=== PATIENT | female | born 1945 | race African-American/Black ===

== ENCOUNTER 2018-02-28 05:53 | Inpatient (IN) | payer OTHER ==
[2018-02-19 14:51] VITALS: BMI 40.6
[~2018-02-28 05:53] MED LIST: CELECOXIB 200 MG CAPSULE PO ONE
[2018-02-28] MEDS ORDERED: CELECOXIB 200 MG CAPSULE ONE (06:17)
[2018-02-28] MEDS ORDERED: ePHEDrine SULFATE 50 MG/1 ML AMPULE ONE (07:06)
[2018-02-28] MEDS ORDERED: PROPOFOL 20 ML ONE ×4 (07:06)
[2018-02-28] MEDS ORDERED: SUCCINYLCHOLINE CHLORIDE 200 MG/10 ML VIAL ONE (07:06)
[2018-02-28] MEDS ORDERED: TRANEXAMIC ACID 1000 MG/10 ML VIAL ONE (07:11)
[2018-02-28] MEDS ORDERED: ceFAZolin SODIUM 1 GM VIAL ONE (07:11)
[2018-02-28] MEDS ORDERED: BUPIVACAINE HCL/PF 2.5 MG/ML - 30 ML VIAL IJ ONE ×2 (07:14→07:15)
[2018-02-28] MEDS ORDERED: DEXAMETHASONE SOD PHOSPHATE/PF 10 MG/ML SDV ONE (07:14)
[2018-02-28] MEDS ORDERED: BUPIVACAINE LIPOSOME/PF (EXPAREL) 266 MG/20 ML VIAL ONE (07:14)
[2018-02-28] MEDS ORDERED: MIDAZOLAM HCL 2 MG/2 ML SINGLE DOSE VIAL ONE (07:14)
[2018-02-28] MEDS ORDERED: BUPIVACAINE HCL/PF 0.5% (5MG/ML) 10 ML VIAL ONE (07:15)
--- NOTE | 2018-02-28 07:17 | HP ---
History & Physical Update - History History: No Change - Physical Physical: No Change - Assessment Assessment: No Change - Plan Plan: No Change (Initial H&P completed by patient's PCP/Dr. Gretta Rutherford on . No new complaints or medications. She is here today for elective repair of her LEFT knee OA. Planned procedure is LEFT knee arthroplasty.)
[2018-02-28] MEDS ORDERED: CEFAZOLIN 2 GM in DEXTROSE 5%-WATER - 50 ML IVPB ONE (07:30)
[2018-02-28] MEDS ORDERED: TRANEXAMIC ACID 1000 MG/10 ML VIAL IVPUSH ONE (07:30)
[2018-02-28] MEDS ORDERED: VANCOMYCIN 1,000 MG in DEXTROSE 5%-WATER - 250 ML IVPB ONE (08:00)
[2018-02-28] MEDS ORDERED: MAGNESIUM HYDROX 2400MG/30ML ORAL SUSPENSION 30 ML CUP PO PRN (09:26)
[2018-02-28] MEDS ORDERED: MAG HYDROX/AL HYDROX/SIMETH 30 ML UNIT-DOSE CUP PO PRN (09:26)
[2018-02-28] MEDS ORDERED: ONDANSETRON 4 MG/2 ML VIAL IVPUSH PRN (09:26)
[2018-02-28] MEDS ORDERED: LACTATED RINGERS SOLUTION 1,000 ML IV SCH (09:30)
[2018-02-28] MEDS ORDERED: BENZOIN/ALOE VERA/STORAX/TOLU 58 ML BOTTLE ONE (09:42)
[2018-02-28] MEDS ORDERED: SODIUM CHLORIDE 1,000 ML IV SCH (09:45)
[2018-02-28] MEDS ORDERED: PATIENT'S OWN MEDICATION (NON-FORMULARY) (Lisinopril/Hydrochlorothiazide [Lisinopril-Hctz PO SCH (10:00)
[2018-02-28] MEDS: oxyCODONE HCL 10 MG SUSTAINED ACTING TABLET PO SCH ×2 (11:00→21:05)
[2018-02-28] MEDS ORDERED: oxyCODONE HCL 10 MG SUSTAINED ACTING TABLET ONE (11:07)
[2018-02-28] MEDS ORDERED: ACETAMINOPHEN 325 MG TABLET (FP) ONE (11:07)
[2018-02-28] MEDS: ACETAMINOPHEN 325 MG TABLET (FP) PO SCH ×2 (11:20→23:43)
[2018-02-28] MEDS: oxyCODONE HCL 5 MG TABLET PO PRN ×3 (13:21→20:11)
--- NOTE | 2018-02-28 13:55 | CONSULT ---
Consultation: REQUESTING PROVIDER: Dr Carroll CONSULT REQUEST: We have been asked to medically evaluate this patient for medical management. HISTORY OF PRESENT ILLNESS: Patient is a 72 y/o female with a past medical history of DJD, hypertension, left carotid bruit, ckd, and DM. patient is s/p left total knee replacement, Dr Carroll, post op day 0, spinal anesthesia. REVIEW OF SYSTEMS: CONSTITUTIONAL: Absent: fever, chills, diaphoresis, generalized weakness, malaise, loss of appetite, weight change HEENT: Absent: rhinorrhea, nasal congestion, throat pain, throat swelling, difficulty swallowing, mouth swelling, ear pain, eye pain, visual changes CARDIOVASCULAR: Absent: chest pain, syncope, palpitations, irregular heart rate, lightheadedness , peripheral edema RESPIRATORY: Absent: cough, shortness of breath, dyspnea with exertion, orthopnea, wheezing, stridor, hemoptysis GASTROINTESTINAL: Absent: abdominal pain, abdominal distension, nausea, vomiting, diarrhea, constipation, melena, hematochezia GENITOURINARY: Absent: dysuria, frequency, urgency, hesitancy, hematuria, flank pain, genital pain MUSCULOSKELETAL: Present: left knee pain Absent: myalgia, arthralgia, joint swelling, back pain, neck pain SKIN: Absent: rash, itching, pallor HEMATOLOGIC/IMMUNOLOGIC: Absent: easy bleeding, easy bruising, lymphadenopathy, frequent infections ENDOCRINE: Absent: unexplained weight gain, unexplained weight loss, heat intolerance, cold intolerance NEUROLOGIC: Absent: headache, focal weakness or paresthesias, dizziness, unsteady gait, seizure, mental status changes, bladder or bowel incontinence PSYCHIATRIC: Absent: anxiety, depression, suicidal or homicidal ideation, hallucinations. PHYSICAL EXAMINATION Vital Signs - 24 hr 02/28/18 02/28/18 02/28/18 06:45 10:35 10:40 Temperature 97.6 F 97.7 F Pulse Rate 102 H 63 66 Respiratory 16 18 18 Rate Blood Pressure 143/83 104/68 105/84 O2 Sat by Pulse 100 100 Oximetry (%) 02/28/18 02/28/18 02/28/18 10:45 11:00 11:15 Temperature Pulse Rate 66 68 65 Respiratory 18 18 18 Rate Blood Pressure 118/75 92/75 122/78 O2 Sat by Pulse 100 100 100 Oximetry (%) 02/28/18 02/28/18 02/28/18 11:30 11:45 12:00 Temperature Pulse Rate 66 68 65 Respiratory 18 18 18 Rate Blood Pressure 124/85 140/79 143/76 O2 Sat by Pulse 100 100 100 Oximetry (%) 02/28/18 02/28/18 12:15 12:48 Temperature 98.3 F Pulse Rate 66 66 Respiratory 18 18 Rate Blood Pressure 141/79 136/76 O2 Sat by Pulse 100 98 Oximetry (%) GENERAL: Awake, alert, and fully oriented, in no acute distress. HEAD: Normal with no signs of trauma. EYES: Pupils equal, round and reactive to light, extraocular movements intact, sclera anicteric, conjunctiva clear. No lid lag. EARS, NOSE, THROAT: Ears normal, nares patent, oropharynx clear without exudates. Moist mucous membranes. NECK: Normal range of motion, supple without lymphadenopathy, JVD, or masses. LUNGS: Breath sounds equal, clear to auscultation bilaterally. No wheezes, and no crackles. No accessory muscle use. HEART: Regular rate and rhythm, normal S1 and S2 without murmur, rub or gallop. ABDOMEN: Soft, nontender, not distended, normoactive bowel sounds, no guarding, no rebound, no masses. No hepatomegaly or splenomegaly. MUSCULOSKELETAL: Normal range of motion at all joints. No bony deformities or tenderness. No CVA tenderness. UPPER EXTREMITIES: 2+ pulses, warm, well-perfused. No cyanosis. No clubbing. Cap refill <2 seconds. No peripheral edema. LOWER EXTREMITIES: 2+ pulses, warm, well-perfused. No calf tenderness. No peripheral edema. LEFT LOWER EXTREMITY: dressing CDI, hemovac noted, scant serrous drainage noted NEUROLOGICAL: Cranial nerves II-XII intact. Normal speech. Normal gait. PSYCHIATRIC: Cooperative. Good eye contact. Appropriate mood and affect. SKIN: Warm, dry, normal turgor, no rashes or lesions noted. Laboratory Results - last 24 hr 02/28/18 02/28/18 06:31 11:16 POC Glucometer 123 118 Active Medications Generic Name Dose Route Start Last Admin Trade Name Freq PRN Reason Stop Dose Admin Acetaminophen 650 mg 02/28/18 12:00 02/28/18 11:20 Tylenol - PO 03/03/18 11:59 650 mg Q6H DIANE Administration Al Hydroxide/Mg Hydroxide 30 ml 02/28/18 09:26 Mylanta Oral Suspension - PO Q4H PRN DYSPEPSIA Aspirin 81 mg 03/01/18 07:00 Asa - PO BID@0700,1900 [facility] Fentanyl 50 mcg 02/28/18 09:38 Sublimaze Injection - IVPUSH [id number] PRN PAIN-PACU ORDER X 4 DOSES ONLY Hydrochlorothiazide 25 mg 03/01/18 10:00 Hctz - PO DAILY [facility] Cefazolin Sodium/Dextrose 2 gm in 50 mls @ 100 mls/hr 02/28/18 16:00 Ancef 2 Gm Premixed Ivpb - IVPB 03/01/18 00:29 Q8H [facility] Vancomycin HCl 1,000 mg in 250 mls @ 166.667 mls/hr 02/28/18 20:00 Vancomycin (Pre-Docked) IVPB 02/28/18 21:29 ONCE ONE Protocol Sodium Chloride 1,000 mls @ 100 mls/hr 02/28/18 09:45 Normal Saline - IV ASDIR [facility] Insulin Aspart 0 units 02/28/18 11:00 Novolog Vial SQ TIDAC [facility] Protocol Lisinopril 20 mg 03/01/18 10:00 Prinivil PO DAILY [facility] Magnesium Hydroxide 30 ml 02/28/18 09:26 Milk Of Magnesia - PO PRN PRN CONSTIPATION Metformin HCl 1,000 mg 03/01/18 07:00 Glucophage Xr - PO BIDI [facility] Ondansetron HCl 4 mg 02/28/18 09:26 Zofran Injection IVPUSH Q6H PRN NAUSEA Oxycodone HCl 5 mg 02/28/18 09:38 Roxicodone - PO Q3H PRN PAIN LEVEL 1-5 Oxycodone HCl 10 mg 02/28/18 09:38 02/28/18 13:21 Roxicodone - PO 10 mg Q3H PRN Administration PAIN LEVEL 6-10 Oxycodone HCl 10 mg 02/28/18 10:00 02/28/18 11:00 Oxycontin - PO 03/03/18 09:39 10 mg BID [facility] Administration Pantoprazole Sodium 40 mg 02/28/18 10:00 Protonix - PO DAILY [facility] Senna/Docusate Sodium 2 tablet 02/28/18 10:00 Pericolace - PO BID [facility] ASSESSMENT/PLAN: 1) MS s/p left total knee replacement, post op day 0 - prn pain medication - monitor hgb - incentive spirometer - physical therapy as per the orthopedist 2) cardiovascular hypertension - cardiology records reviewed, last echo 02/05/18, lvef nl. no as, systolic dysfunction - continue lisinopril,strict monitoring of b/p 3) endo dm fingersticks achs with regular insulin sliding scale -continue metformin with caution, hx of ckd 4) neph ckd - baseline creatine 1.6, strict monitoring Dispo: We will continue to follow the patient. Thank you for this consultative opportunity. Visit type - Emergency Visit Emergency Visit: No - New Patient This patient is new to me today: Yes Date on this admission: 02/28/18 - Critical Care Critical Care patient: No
[2018-02-28] MEDS: CEFAZOLIN 2 GM/D5W 2 GM/50 ML ML IVPB SCH ×2 (16:00→23:43)
[2018-02-28] MEDS ORDERED: VANCOMYCIN 1 GRAM (PRE-DOCKED) 1,000 MG/250 ML BAG IVPB ONE (20:00)
[2018-02-28] MEDS: SENNOSIDES/DOCUSATE COMBO (SENNA PLUS) TABLET (UD) PO SCH (21:05)
[2018-03-01] MEDS: ACETAMINOPHEN 325 MG TABLET (FP) PO SCH ×4 (05:47→23:17)
[2018-03-01] MEDS: oxyCODONE HCL 5 MG TABLET PO PRN (05:48)
[2018-03-01] MEDS: INSULIN (NOVOLOG) ASPART 100 UNITS/ML 10ML VIAL SQ SCH ×2 (06:25→16:54)
[2018-03-01] MEDS: ASPIRIN 81 MG CHEWABLE TABLETS PO SCH ×2 (06:25→18:08)
[2018-03-01 07:45] LABS: HEMATOCRIT 33.7 % (32.4-45.2); HEMOGLOBIN 11.5 GM/dl (10.7-15.3); MCH 31.9 pg (25.7-33.7); MCHC 34.2 g/dl (32.0-36.0); MEAN CELL VOLUME 93.3 fl (80-96); MEAN PLT VOLUME 7.3 fl (7.5-11.1); PLATELET COUNT 278 K/MM3 (134-434); RBC 3.61 M/mm3 (3.60-5.2); RDW 12.8 % (11.6-15.6); WHITE BLOOD COUNT 7.9 K/mm3 (4.0-10.8)
[2018-03-01 08:00] LABS: ANION GAP 7 (8-16); BLOOD UREA NITROGEN 29 mg/dl (7-18); CALCIUM 8.9 mg/dl (8.4-10.2); CHLORIDE 103 mmol/L (98-107); CO2 24 mmol/L (22-28); CREATININE 1.6 mg/dl (0.6-1.3); GLUCOSE,RANDOM 167 mg/dl (74-106); POTASSIUM 4.7 mmol/L (3.5-5.1); SODIUM 134 mmol/L (136-145)
[2018-03-01] MEDS: oxyCODONE HCL 10 MG SUSTAINED ACTING TABLET PO SCH ×2 (09:15→21:28)
[2018-03-01] MEDS: SENNOSIDES/DOCUSATE COMBO (SENNA PLUS) TABLET (UD) PO SCH ×2 (09:16→21:29)
[2018-03-01] MEDS: PANTOPRAZOLE 40 MG TABLET (FP) PO SCH (09:16)
--- NOTE | 2018-03-01 09:33 | OP ---
DATE OF OPERATION: 02/28/2018 SURGEON: Pete Carroll MD ASSISTANTS: Igor Carroll MD andJIMMY PREOPERATIVE DIAGNOSIS: Tricompartment osteoarthritis, left knee, with severe valgus deformity (fixed). POSTOPERATIVE DIAGNOSIS: Tricompartment osteoarthritis, left knee, with severe valgus deformity (fixed). OPERATION PERFORMED: 1. Left total knee arthroplasty. 2. Lateral release. ANESTHESIA: Adductor block with spinal anesthesia and conscious sedation. ANTIBIOTICS GIVEN: Kefzol 2 g, 1 g vancomycin preop; 1 g Kefzol given at the time of release of the tourniquet. PROCEDURE: Patient correctly identified and brought to the operating room. Left lower extremity was prepped routinely and draped, that is free draped with Betadine scrub solution, wiped with alcohol, DuraPrep applied. The knee was flexed. A midline incision was utilized from 2 fingers above the tip of the patella to the mid-section of the tibial tubercle. The incision was taken through the skin and subcutaneous tissue. The soft tissues were freed off the vastus tissues disscected slightly to the medial retinacula. The quadriceps tendon was split longitudinally and this was then curved around the medial aspect of the parapatellar margin to the medial aspect of the tibial tubercle. Sharp dissection was utilized to free the soft tissue off the proximal medial aspect of the tibia. The cruciate ligaments were transected. Sharp Hohmann placed behind the tibial structures accordingly. Severe valgus deformity with severe destructive arthropathy encountered. Once this had been performed, using the [employer]ESS[employer] jig system, the tibia was cut to neutral. The femur was cut to 3 degrees of external rotation and 4 degrees of valgus and the joint line was proximalized. Instead of 8 mm, we took 10 mm off the actual femoral component and a liberal cut of the tibia was utilized. Some sclerotic bone was left behind, but this was dealt with with multiple small drill holes placed into the bone bed for cementation later. The jig cuts were uncomplicated. This brought the knee into completely normal alignment. The flexion/extension gaps were even. The tibia measured a size 4. The femur measured a size 4, and because of the relative instability of the medial collateral ligament, we elected for a TS, that is constrained -type construct. A 100-mm stem was added to the tibial component to augment fixation. The patellar lug holes were drilled accordingly. Cementing was in 1 stage. The cement was cured and all extraneous cement was removed. The knee was brought in full extension and once the entire construct had cured in terms of cement and fixation, a beautiful anatomic realignment of his knee was achieved. That is, the knee was in anatomical coronal plane alignment, sagittal plane alignment was uncomplicated, patellar tracking was normal. A negative thumb test test was utilized, appreciating that the patella did not sublux laterally. In order to facilitate and remove some slight tilting of the patella, a distal lateral release was performed. The wounds were thoroughly lavaged. All extraneous cement was removed. A size 13 polyethylene liner for TS articulation was utilized. The wounds were closed as follows: Quadriceps tendon and parapatellar tendon with 1 Vicryl, fascia and subcutaneous with 1 Vicryl, skin 3-0 Monocryl with Steri-Strips. No drains utilized. Operation went extremely well. No complications. MD CLIFF Sow/[id number] MTDD
[2018-03-01] MEDS: HYDROCHLOROTHIAZIDE 25 MG TABLET (FP) PO SCH (09:43)
[2018-03-01] MEDS: LISINOPRIL 20 MG TABLET (FP) PO SCH (09:43)
--- NOTE | 2018-03-01 09:56 | PN ---
Progress Note, Physician Chief Complaint: s/p left knee arthroplasty under spinal anesthesia History of Present Illness: post op day one with adductor canal and popliteal blocks for postop pain control - Current Medication List Current Medications: Active Medications Acetaminophen (Tylenol -) 650 mg PO Q6H [facility] Stop: 03/03/18 11:59 Last Admin: 03/01/18 05:47 Dose: 650 mg Al Hydroxide/Mg Hydroxide (Mylanta Oral Suspension -) 30 ml PO Q4H PRN PRN Reason: DYSPEPSIA Aspirin (Asa -) 81 mg PO BID@0700,1900 [facility] Last Admin: 03/01/18 06:25 Dose: 81 mg Fentanyl (Sublimaze Injection -) 50 mcg IVPUSH [id number] PRN PRN Reason: PAIN-PACU ORDER X 4 DOSES ONLY Hydrochlorothiazide (Hctz -) 25 mg PO DAILY [facility] Last Admin: 03/01/18 09:43 Dose: 25 mg Sodium Chloride (Normal Saline -) 1,000 mls @ 100 mls/hr IV ASDIR [facility] Insulin Aspart (Novolog Vial) 0 units SQ TIDAC [facility] PRN Reason: Protocol Last Admin: 03/01/18 06:25 Dose: 2 units Lisinopril (Prinivil) 20 mg PO DAILY [facility] Last Admin: 03/01/18 09:43 Dose: 20 mg Magnesium Hydroxide (Milk Of Magnesia -) 30 ml PO PRN PRN PRN Reason: CONSTIPATION Metformin HCl (Glucophage Xr -) 1,000 mg PO BIDI [facility] Last Admin: 03/01/18 06:25 Dose: 1,000 mg Ondansetron HCl (Zofran Injection) 4 mg IVPUSH Q6H PRN PRN Reason: NAUSEA Oxycodone HCl (Roxicodone -) 5 mg PO Q3H PRN PRN Reason: PAIN LEVEL 1-5 Last Admin: 03/01/18 05:48 Dose: 5 mg Oxycodone HCl (Roxicodone -) 10 mg PO Q3H PRN PRN Reason: PAIN LEVEL 6-10 Last Admin: 02/28/18 17:22 Dose: 10 mg Oxycodone HCl (Oxycontin -) 10 mg PO BID [facility] Stop: 03/03/18 09:39 Last Admin: 03/01/18 09:15 Dose: 10 mg Pantoprazole Sodium (Protonix -) 40 mg PO DAILY [facility] Last Admin: 03/01/18 09:16 Dose: 40 mg Senna/Docusate Sodium (Pericolace -) 2 tablet PO BID [facility] Last Admin: 03/01/18 09:16 Dose: 2 tablet - Objective Vital Signs: Vital Signs Temperature 98.5 F 03/01/18 06:35 Pulse Rate 103 H 03/01/18 06:35 Respiratory Rate 20 03/01/18 06:35 Blood Pressure 117/66 03/01/18 06:35 O2 Sat by Pulse Oximetry (%) 98 03/01/18 06:35 Constitutional: Yes: Well Nourished Cardiovascular: Yes: WNL Respiratory: Yes: WNL Gastrointestinal: Yes: WNL Neurological: Yes: WNL Labs: CBC, BMP 03/01/18 07:15 03/01/18 07:15 Assessment/Plan complained of pain overnight but controlled now, no nausea or vomiting, no adverse effect of anesthetic, advised to continue to ask for prn oxycodone. Will sign off care at this time.
--- NOTE | 2018-03-01 12:22 | PN ---
Physical Exam: SUBJECTIVE: Patient seen and examined, reports feeling well, reports minimal pain to the left lower extremity. OBJECTIVE:ashlyn is a 72 y/o female with a past medical history of DJD, hypertension, left carotid bruit, ckd, and DM. patient is s/p left total knee replacement, Dr Carroll, post op day 1, spinal anesthesia. Vital Signs Period Temp Pulse Resp BP Sys/Howard Pulse Ox Last 24 Hr 98.2 F-98.5 F 66-103 18-20 117-157/66-79 98-98 GENERAL: The patient is awake, alert, and fully oriented, in no acute distress. HEAD: Normal with no signs of trauma. EYES: PERRL, extraocular movements intact, sclera anicteric, conjunctiva clear. No ptosis. ENT: Ears normal, nares patent, oropharynx clear without exudates, moist mucous membranes. NECK: Trachea midline, full range of motion, supple. LUNGS: Breath sounds equal, clear to auscultation bilaterally, no wheezes, no crackles, no accessory muscle use. HEART: Regular rate and rhythm, S1, S2 without murmur, rub or gallop. ABDOMEN: Soft, nontender, nondistended, normoactive bowel sounds, no guarding, no rebound, no hepatosplenomegaly, no masses. EXTREMITIES: 2+ pulses, warm, well-perfused, no edema. LEFT LOWER EXTREMITY: dressing CDI, less than 3 second capillary refill, +3 pedal pulse NEUROLOGICAL: Cranial nerves II through XII grossly intact. Normal speech, gait not observed. PSYCH: Normal mood, normal affect. SKIN: Warm, dry, normal turgor, no rashes or lesions noted Laboratory Results - last 24 hr 03/01/18 03/01/18 03/01/18 06:23 07:15 07:15 WBC 7.9 RBC 3.61 Hgb 11.5 Hct 33.7 MCV 93.3 MCH 31.9 MCHC 34.2 RDW 12.8 Plt Count 278 MPV 7.3 L Sodium 134 L Potassium 4.7 Chloride 103 Carbon Dioxide 24 Anion Gap 7 L BUN 29 H Creatinine 1.6 H POC Glucometer 165 Random Glucose 167 H Calcium 8.9 Active Medications Generic Name Dose Route Start Last Admin Trade Name Freq PRN Reason Stop Dose Admin Acetaminophen 650 mg 02/28/18 12:00 03/01/18 12:20 Tylenol - PO 03/03/18 11:59 650 mg Q6H DIANE Administration Al Hydroxide/Mg Hydroxide 30 ml 02/28/18 09:26 Mylanta Oral Suspension - PO Q4H PRN DYSPEPSIA Aspirin 81 mg 03/01/18 07:00 03/01/18 06:25 Asa - PO 81 mg BID@0700,1900 DIANE Administration Fentanyl 50 mcg 02/28/18 09:38 Sublimaze Injection - IVPUSH [id number] PRN PAIN-PACU ORDER X 4 DOSES ONLY Hydrochlorothiazide 25 mg 03/01/18 10:00 03/01/18 09:43 Hctz - PO 25 mg DAILY DIANE Administration Sodium Chloride 1,000 mls @ 100 mls/hr 02/28/18 09:45 Normal Saline - IV ASDIR [facility] Insulin Aspart 0 units 02/28/18 11:00 03/01/18 06:25 Novolog Vial SQ 2 units TIDAC [facility] Administration Protocol Lisinopril 20 mg 03/01/18 10:00 03/01/18 09:43 Prinivil PO 20 mg DAILY [facility] Administration Magnesium Hydroxide 30 ml 02/28/18 09:26 Milk Of Magnesia - PO PRN PRN CONSTIPATION Metformin HCl 1,000 mg 03/01/18 07:00 03/01/18 06:25 Glucophage Xr - PO 1,000 mg BIDI [facility] Administration Ondansetron HCl 4 mg 02/28/18 09:26 Zofran Injection IVPUSH Q6H PRN NAUSEA Oxycodone HCl 5 mg 02/28/18 09:38 03/01/18 05:48 Roxicodone - PO 5 mg Q3H PRN Administration PAIN LEVEL 1-5 Oxycodone HCl 10 mg 02/28/18 09:38 02/28/18 17:22 Roxicodone - PO 10 mg Q3H PRN Administration PAIN LEVEL 6-10 Oxycodone HCl 10 mg 02/28/18 10:00 03/01/18 09:15 Oxycontin - PO 03/03/18 09:39 10 mg BID DIANE Administration Pantoprazole Sodium 40 mg 02/28/18 10:00 03/01/18 09:16 Protonix - PO 40 mg DAILY [facility] Administration Senna/Docusate Sodium 2 tablet 02/28/18 10:00 03/01/18 09:16 Pericolace - PO 2 tablet BID DIANE Administration ASSESSMENT/PLAN: 1) MS s/p left total knee replacement, post op day 1 - prn pain medication - monitor hgb - incentive spirometer - physical therapy as per the orthopedist 2) cardiovascular hypertension - cardiology records reviewed, last echo 02/05/18, lvef nl. no as, systolic dysfunction - continue lisinopril,strict monitoring of b/p 3) endo dm fingersticks achs with regular insulin sliding scale -continue metformin with caution, hx of ckd 4) neph ckd -creatine 1.6 at baseline, strict monitoring Dispo: We will continue to follow the patient. Thank you for this consultative opportunity. Visit type - Emergency Visit Emergency Visit: No - New Patient This patient is new to me today: No - Critical Care Critical Care patient: No - Discharge Referral Referred to [facility] Med [facility] No
[2018-03-01 22:05] VITALS: BP 139/74; PULSE 116; TEMP 99.3
[2018-03-02] MEDS: ASPIRIN 81 MG CHEWABLE TABLETS PO SCH (06:15)
[2018-03-02] MEDS: ACETAMINOPHEN 325 MG TABLET (FP) PO SCH ×2 (06:16→11:51)
[2018-03-02] MEDS: INSULIN (NOVOLOG) ASPART 100 UNITS/ML 10ML VIAL SQ SCH (06:17)
[2018-03-02 08:06] LABS: ANION GAP 5 (8-16); BLOOD UREA NITROGEN 26 mg/dl (7-18); CALCIUM 8.3 mg/dl (8.4-10.2); CHLORIDE 101 mmol/L (98-107); CO2 24 mmol/L (22-28); CREATININE 1.6 mg/dl (0.6-1.3); GLUCOSE,RANDOM 178 mg/dl (74-106); POTASSIUM 4.6 mmol/L (3.5-5.1); SODIUM 130 mmol/L (136-145)
[2018-03-02] MEDS: oxyCODONE HCL 10 MG SUSTAINED ACTING TABLET PO SCH (09:28)
[2018-03-02] MEDS: PANTOPRAZOLE 40 MG TABLET (FP) PO SCH (09:29)
[2018-03-02] MEDS: HYDROCHLOROTHIAZIDE 25 MG TABLET (FP) PO SCH (09:29)
[2018-03-02] MEDS: LISINOPRIL 20 MG TABLET (FP) PO SCH (09:29)
--- NOTE | 2018-03-02 09:50 | PN ---
Progress Note (short form) - Note Progress Note: 72F doing well s/p LEFT TKA POD #2. Pain well controlled. No acute events overnight. Pt. denies overnight history of chest pain, shortness of breath, nausea, vomiting, chills, & sweats. (+) Voiding; (+) Flatus; (-) BM. (+) Walked in hallway w/front frame rolling walker. All labs & vitals reviewed. PE: AAO x 3, NAD. L Knee: Dressing C/D/I. HemoVac drain intact & in place. B/L LE neurovascular status at baseline. 72F doing well s/p LEFT TKA POD #2. -Pain control: as per anaesthesia team. -DVT PPx: - Mechanical: B/L LE SUGAR's, SCD's. - Chemical: ASA EC 81mg PO BID x 6 weeks post-op. -Incentive spirometry; pulmonary toilet. -PT/OT/Rehab, OOB. -WBAT RLE. -Advance diet as tolerated. -f/u AM labs. -d/c drain this afternoon. -Care per medical hospitalist team. -Discharge planning: f/u next 03/08/2018, [facility] [place] [facility]. Call for appointment: . -Will follow. Igor Carroll MD (Orthopaedic Surgery).
[2018-03-02] MEDS: SENNOSIDES/DOCUSATE COMBO (SENNA PLUS) TABLET (UD) PO SCH (10:00)
[2018-03-02 10:35] LABS: HEMATOCRIT 31.8 % (32.4-45.2); HEMOGLOBIN 10.6 GM/dl (10.7-15.3); MCH 31.4 pg (25.7-33.7); MCHC 33.5 g/dl (32.0-36.0); MEAN CELL VOLUME 93.7 fl (80-96); MEAN PLT VOLUME 7.4 fl (7.5-11.1); PLATELET COUNT 272 K/MM3 (134-434); RBC 3.39 M/mm3 (3.60-5.2); RDW 13.2 % (11.6-15.6); WHITE BLOOD COUNT 10.1 K/mm3 (4.0-10.8)
--- NOTE | 2018-03-02 11:20 | DS ---
Physical Exam: SUBJECTIVE: Patient seen and examined, patient ambulated with physical therapy, denies any parestheisa to the extremity. OBJECTIVE:Patient is a 72 y/o female with a past medical history of DJD, hypertension, left carotid bruit, ckd, and DM. patient is s/p left total knee replacement, Dr Carroll, spinal anesthesia. Vital Signs Temperature 99.3 F 03/01/18 22:00 Pulse Rate 116 H 03/01/18 22:00 Respiratory Rate 19 03/01/18 22:00 Blood Pressure 139/74 03/01/18 22:00 O2 Sat by Pulse Oximetry (%) 97 03/01/18 22:04 PHYSICAL EXAM GENERAL: The patient is awake, alert, and fully oriented, in no acute distress. HEAD: Normal with no signs of trauma. EYES: PERRL, extraocular movements intact, sclera anicteric, conjunctiva clear. ENT: Ears normal, nares patent, oropharynx clear without exudates, moist mucous membranes. NECK: Trachea midline, full range of motion, supple. LUNGS: Breath sounds equal, clear to auscultation bilaterally, no wheezes, no crackles, no accessory muscle use. HEART: Regular rate and rhythm, S1, S2 without murmur, rub or gallop. ABDOMEN: Soft, nontender, nondistended, normoactive bowel sounds, no guarding, no rebound, no hepatosplenomegaly, no masses. EXTREMITIES: 2+ pulses, warm, well-perfused, no edema. LEFT LOWER EXTREMITY: hemovac, scant sangenous drainage, scd/damion, less than 3 second capillary refill, +3 pedal pulse NEUROLOGICAL: Cranial nerves II through XII grossly intact. Normal speech, gait not observed. PSYCH: Normal mood, normal affect. SKIN: Warm, dry, normal turgor, no rashes or lesions noted. LABS CBC,CMP WBC 10.1 K/mm3 (4.0-10.8) 03/02/18 07:14 RBC 3.39 M/mm3 (3.60-5.2) L 03/02/18 07:14 Hgb 10.6 GM/dl (10.7-15.3) L 03/02/18 07:14 Hct 31.8 % (32.4-45.2) L 03/02/18 07:14 MCV 93.7 fl (80-96) 03/02/18 07:14 MCH 31.4 pg (25.7-33.7) 03/02/18 07:14 MCHC 33.5 g/dl (32.0-36.0) 03/02/18 07:14 RDW 13.2 % (11.6-15.6) 03/02/18 07:14 Plt Count 272 K/MM3 (134-434) 03/02/18 07:14 MPV 7.4 fl (7.5-11.1) L 03/02/18 07:14 Sodium 130 mmol/L (136-145) L 03/02/18 07:14 Potassium 4.6 mmol/L (3.5-5.1) 03/02/18 07:14 Chloride 101 mmol/L (98-107) 03/02/18 07:14 Carbon Dioxide 24 mmol/L (22-28) 03/02/18 07:14 Anion Gap 5 (8-16) L 03/02/18 07:14 BUN 26 mg/dl (7-18) H 03/02/18 07:14 Creatinine 1.6 mg/dl (0.6-1.3) H 03/02/18 07:14 POC Glucometer 136 UNITS (80-120) 03/02/18 06:12 Random Glucose 178 mg/dl (74-106) H 03/02/18 07:14 Calcium 8.3 mg/dl (8.4-10.2) L 03/02/18 07:14 HOSPITAL COURSE: The patient was admitted to the Med-Surg Unit after an elective left total knee replacement. The day of surgery, the patient ambulated the hallways with assistance. Narcotic and non-narcotic pain management control was achieved with an oral and IV approach. POD #2, the surgical drain was removed fully intact and without incident.Virgie-operative IV ABX were administered. DVT prophylaxis was achieved with SCDs and early ambulation. The patient ambulated with Physical Therapy and patient will receive home physical therapy. The discharge instructions and an oral pain management plan were reviewed with the patient. All questions answered. Above plan discussed with Dr. Carroll and agreed. Date of Admission:02/28/18 Date of Discharge: 03/02/18 Minutes to complete discharge: 45 Visit type - Case Type Case Type: Scheduled Admission - Emergency Emergency Visit: No - New patient This patient is new to me today: No - Critical Care Critical Care patient: No
--- NOTE | 2018-03-02 16:47 | PATH ---
Surgical Pathology Report Patient Name: EDYTA BRADSHAW Med. Rec. #: [id number] /Age/Gender: 1945 (Age: 72) / F Account: [id number] Location: [facility] MED-SURG Taken: 02/28/2018 Received: 02/28/2018 Reported: 03/02/2018 Physicians: Pete Carroll M.D. Specimen(s) Received BONE LEFT KNEE Clinical History Left knee osteoarthritis Final Diagnosis BONE, LEFT KNEE, TOTAL KNEE REPLACEMENT: DEGENERATIVE JOINT DISEASE. Electronically Signed Carie Dutton M.D. Gross Description Received in formalin labeled "bone left knee," is a 9.0 x 8.5 x 1.8 cm aggregate of multiple irregular portions of bone. The tibial plateau measures 7.7 x 5.0 x 1.8 cm. There is a 3 cm in greatest dimension area of eburnation present. The remaining articular surfaces are briceno-yellow and diffusely granular. The underlying trabecular bone is yellow and hard. A support representative section is submitted in one cassette, following decalcification. 03/01/201803/01/2018
== END 2018-03-02 13:11 | disposition home health service (06) | DRG 470 ==
LOC: FM/S 05:53
PROVIDERS: ADMIT Orthopaedic Surgery Orthopaedic Surgery of the Spine; ATTEND Orthopaedic Surgery Orthopaedic Surgery of the Spine
PROC: 0SRD0J9 Replacement of Left Knee Joint with Synthetic Substitute, Cemented, Open Approach (ICD-10-PCS; principal; 2018-02-28 08:36)
DX: M17.12 Unilateral primary osteoarthritis, left knee (principal); I12.9 Hypertensive chronic kidney disease with stage 1 through stage 4 chronic kidney disease, or unspecified chronic kidney disease; E11.22 Type 2 diabetes mellitus with diabetic chronic kidney disease; N18.9 Chronic kidney disease, unspecified
CPT/HCPCS: 36415; 73560-TC-LT-FY; 80048; 82962; 85027; 94010; 94760; 97116-GP; 97161-GP